=== PATIENT | male | born 1975 | race Caucasian/White ===

== ENCOUNTER 2017-02-13 17:41 | Emergency (ER) | payer BC, MEDICAID, OTHER ==
[2017-02-13 17:41] VITALS: BMI 42.3
[2017-02-13 18:03] VITALS: TEMP 98.4
[2017-02-13] MEDS ORDERED: HYDROmorphone 1 mg/ml ISec IVP STA ×2 (18:06→19:07)
[2017-02-13] MEDS ORDERED: HYDROmorphone 1 mg/ml ISec ONE ×2 (18:09→19:02)
--- NOTE | 2017-02-13 18:14 | C.PDOC ---
History Of Present Illness <Grady Holm - Last Filed: 02/13/17 20:55> <Tunde Ferguson DO - Last Filed: 02/14/17 07:22> 42 year old patient presents to the ED complaining of inability to urinate for the past 3 hours. Patient has an extensive urology history which includes urethral stricture, kidney stones, and urethral scarring. Patient states he is in severe pain. He denies any other complaints. (Phyllis FERNANDEZTunde) <Grady Holm - Last Filed: 02/13/17 20:55> History Per: Patient History/Exam Limitations: no limitations Onset/Duration Of Symptoms: Hrs (3 hours prior to arrival) Current Symptoms Are (Timing): Still Present Severity: Severe Pain Scale Rating Of: 10 Quality Of Discomfort: Pressure, "Pain" Associated Symptoms: Urinary Symptoms Alleviating Factors: None Recent travel outside of the [place]: No <Phyllis Tunde FERNANDEZ - Last Filed: 02/14/17 07:22> Time Seen by Provider: 02/13/17 17:57 Chief Complaint (Nursing): Male Genitourinary Past Medical History Reviewed: Historical Data, Nursing Documentation, Vital Signs Family History: States: Unknown Family Hx - Social History Hx Tobacco Use: No Hx Alcohol Use: Yes Hx Substance Use: No - Immunization History Hx Tetanus Toxoid Vaccination: No Hx Influenza Vaccination: No Hx Pneumococcal Vaccination: No <Tunde Ferguson DO - Last Filed: 02/14/17 07:22> Vital Signs: Last Vital Signs Temp 98.4 F 02/13/17 18:06 Pulse 103 H 02/13/17 20:35 Resp 18 02/13/17 20:35 BP 129/75 02/13/17 20:35 Pulse Ox 95 02/13/17 20:35 Review Of Systems Except As Marked, All Systems Reviewed And Found Negative. Constitutional: Negative for: Fever Respiratory: Negative for: Shortness of Breath Genitourinary: Positive for: Other (urinary retention) <Renettamo Tunde - Last Filed: 02/14/17 07:22> Physical Exam - Physical Exam Appears: Non-toxic, Other (severe distress) Skin: Warm, Dry Head: Atraumatic, Normacephalic Neck: Normal ROM, Supple Chest: Symmetrical Cardiovascular: Rhythm Regular Respiratory: Normal Breath Sounds, No Rales, No Rhonchi, No Wheezing Gastrointestinal/Abdominal: Soft, Tenderness (to palpation of suprapubic region) , No Guarding, No Rebound Back: Normal Inspection Male Genital: No Testicular Tenderness, No Testicular Swelling, No Inguinal Tenderness, No Inguinal Swelling, No Scrotal Swelling, No Circumcised, Other ( glans of penis has scarring with distal urethral stricture) Extremity: Normal ROM Neurological/Psych: Oriented x3 Gait: Steady <Tunde Ferguson DO - Last Filed: 02/14/17 07:22> ED Course And Treatment - Laboratory Results Result Diagrams: 02/13/17 18:09 02/13/17 18:09 Pulse Ox Interpretation: Normal - CT Scan/US CT Abd/Pel Other Rad Studies (CT/US): Interpreted By Me, Read By Radiologist CT/US Interpretation: EXAM: CT Abdomen and Pelvis With Intravenous Contrast. CLINICAL HISTORY: 42 years old, male; Pain and signs and symptoms; Other: Urinary retention; Abdominal pain;. Generalized; Additional info: Urinary retention, abd pain. TECHNIQUE: Axial computed tomography images of the abdomen and pelvis with intravenous contrast. This CT. exam was performed using one or more of the following dose reduction techniques: automated. exposure control, adjustment of the mA and/or kV according to patient size, and/ or use of iterative. reconstruction technique. Coronal and sagittal reformatted images were created and reviewed. CONTRAST: 100 mL of omnipaque 300 administered intravenously. EXAM DATE/TIME: Exam ordered 02/13/2017 7:03 PM. COMPARISON: No relevant prior studies available. FINDINGS: Lower thorax : Hypoventilatory changes are noted in the dependent portion of both lungs. ABDOMEN: Liver: Unremarkable. No mass. Gallbladder and bile ducts: Unremarkable. No calcified stones. No ductal dilation. Pancreas: Unremarkable. No mass. No ductal dilation. Spleen: Unremarkable. No splenomegaly. Adrenals: Unremarkable. No mass. Kidneys and ureters: Unremarkable. No solid mass. No hydronephrosis. Stomach and bowel: Unremarkable. No obstruction. No mucosal thickening. Appendix: No findings to suggest acute appendicitis. PELVIS: Bladder: There is a Burk catheter present within the bladder. There is an air- fluid level seen within. the bladder. The bladder is decompressed. Reproductive: The prostate measures 4.3 x 4.3 x 4.6 cm. Mild inflammatory changes are noted. within the fat surrounding the seminal vesicles. ABDOMEN and PELVIS: Intraperitoneal space: Unremarkable. No free air. No significant fluid collection. Bones/joints: No acute fracture. No dislocation. Soft tissues: Unremarkable. Vasculature: Unremarkable. No abdominal aortic aneurysm. Lymph nodes: Unremarkable. No enlarged lymph nodes. IMPRESSION: 1. Inflammatory changes noted around the seminal vesicles. This may be related to. infection/inflammation. Infection of the seminal vesicles is often associated with prostatitis. Clinical. correlation suggested. Reevaluation Time: 20:56 Reassessment Condition: Improved <Grady Holm - Last Filed: 02/13/17 20:55> - Laboratory Results Result Diagrams: 02/13/17 18:09 02/13/17 18:09 O2 Sat by Pulse Oximetry: 100 (room air) Pulse Ox Interpretation: Normal Progress Note: Plan: cart Stat, Complete metabolic panel, CBC, Dilaudid. Dr. Hinkle, Urologist communications superintendent, was called for a consult STAT due to difficulty passing burk catheter. Passed 4-kazakh catheter with minimal urinary release. Urine culture and urinalysis ordered. <Tunde Ferguson DO - Last Filed: 02/14/17 07:22> Disposition Counseled Patient/Family Regarding: Studies Performed, Diagnosis, Need For Followup, Rx Given - Disposition Disposition Time: 19:00 <Grady Holm - Last Filed: 02/13/17 20:55> <Tunde Ferguson DO - Last Filed: 02/14/17 07:22> - Disposition Referrals: Jesus Hinkle Jr., MD [Staff Provider] - Disposition: HOME/ ROUTINE Condition: IMPROVED Prescriptions: Sulfamethoxazole/Trimethoprim [Bactrim DS 800 mg-160 mg] 1 tab PO BID #20 tab Instructions: Urinary Retention in Men (ED), Burk Catheter Placement and Care (ED), Urinary Leg Bag (GEN) - Clinical Impression Clinical Impression: Acute urinary retention <Grady Holm - Last Filed: 02/13/17 20:55> - Scribe Statement The provider has reviewed the documentation as recorded by the Scribe <Tunde Ferguson DO - Last Filed: 02/14/17 07:22> - Scribe Statement Clara Blanchard (Tunde Ferguson DO) Provider Attestation: All medical record entries made by the Scribe were at my direction and personally dictated by me. I have reviewed the chart and agree that the record accurately reflects my personal performance of the history, physical exam, medical decision making, and the department course for this patient. I have also personally directed, reviewed, and agree with the discharge instructions and disposition. (Phyllis FERNANDEZ,Tunde)
[2017-02-13 18:20] LABS: BASO # 0.2 K/uL (0.0-0.2); BASO % 0.7 % (0.0-2.0); EOS % 0.1 % (0.0-4.0); HEMATOCRIT 46.6 % (35.0-51.0); LYMPH # 2.5 K/uL (1.0-4.3); LYMPH % 11.3 % (20.0-40.0); MEAN CORPUSCULAR HEMOGLOBIN 28.3 pg (27.0-31.0); MEAN CORPUSCULAR HGB CONC 32.9 g/dL (33.0-37.0); MEAN PLATELET VOLUME 8.1 fL (7.2-11.7); MONO % 8.9 % (0.0-10.0); RED CELL DISTRIBUTION WIDTH 13.4 % (11.5-14.5)
[2017-02-13 18:22] LABS: WHITE BLOOD COUNT 22.3 K/uL (4.8-10.8)
[2017-02-13 18:23] LABS: CHLORIDE 99 mmol/L (98-107); SODIUM 136 mmol/L (132-148)
[2017-02-13 18:25] LABS: BILIRUBIN,TOTAL 1.5 mg/dL (0.2-1.3); GFR AFRICAN-AMERICAN > 60
[2017-02-13 18:26] LABS: ALB/GLOB RATIO 1.3 (1.0-2.1); ALKALINE PHOSPHATASE 88 U/L (38-126); ALT/SGPT 14 U/L (21-72); AST/SGOT 19 U/L (17-59); BLOOD UREA NITROGEN 10 mg/dL (9-20); CARBON DIOXIDE 21 mmol/L (22-30); GLUCOSE,RANDOM 118 mg/dL (75-110)
[2017-02-13 18:27] LABS: CALCIUM 9.1 mg/dl (8.6-10.4)
[2017-02-13] MEDS ORDERED: Iohexol 300 100 ML IJ ONE (19:31)
[2017-02-13 20:11] LABS: RBC URINE 22 /hpf (0-3); URINE BACTERIA MANY (<OCC); URINE BILIRUBIN NEGATIVE (NEGATIVE); URINE BLOOD 1+ (NEGATIVE); URINE COLOR Yellow (YELLOW); URINE GLUCOSE (UA) NORMAL (Normal); URINE KETONE TRACE mg/dL (NEGATIVE); URINE LEUKOCYTE ESTERASE 3+ Leu/uL (Negative); URINE PROTEIN NEGATIVE (NEGATIVE); URINE UROBILINOGEN NORMAL mg/dL (0.2-1.0); WBC URINE 226 /hpf (0-5)
[2017-02-13] MEDS ORDERED: cefTRIAXone IV 1 gm in Dextros 50 ML IVPB ONE ×2 (20:21→20:33)
[2017-02-13 20:36] VITALS: BP 129/75; PULSE 103; RESP 18
--- NOTE | 2017-02-14 01:47 | CT ---
PROCEDURE: CT Abdomen and Pelvis with contrast HISTORY: urinary retention, abd pain COMPARISON: None. TECHNIQUE: Contrast dose: 90 cc Radiation dose: Total exam DLP = 13 35 mGy-cm. This CT exam was performed using one or more of the following dose reduction techniques: Automated exposure control, adjustment of the mA and/or kV according to patient size, and/or use of iterative reconstruction technique. FINDINGS: LOWER THORAX: Mild dependent atelectasis is seen at the lung bases. Visualized esophagus shows small hiatal hernia. No pericardial effusion is seen. LIVER: Unremarkable. No gross lesion or ductal dilatation. GALLBLADDER AND BILE DUCTS: Unremarkable. PANCREAS: Unremarkable. No gross lesion or ductal dilatation. SPLEEN: Unremarkable. ADRENALS: Unremarkable. No mass. KIDNEYS AND URETERS: Unremarkable. No hydronephrosis. No solid mass. VASCULATURE: Unremarkable. No aortic aneurysm. BOWEL: Unremarkable. No obstruction. No gross mural thickening. APPENDIX: Normal appendix. PERITONEUM: Unremarkable. No free fluid. No free air. LYMPH NODES: Unremarkable. No enlarged lymph nodes. BLADDER: Biggs catheter is seen in the bladder. REPRODUCTIVE: There is nonspecific mild enlargement and inflammatory change adjacent to the seminal vesicles. Significantly enlarged. BONES: Degenerative changes are seen in the spine. No lytic lesion is seen in the bony structures. OTHER FINDINGS: None. IMPRESSION: Mild nonspecific inflammatory changes and enlargement of the seminal vesicles. This could be related to prostatitis in the correct clinical setting. Biggs catheter in the bladder. This agrees with preliminary report.
[2017-02-14 07:22] VITALS: O2SAT 100
--- NOTE | 2017-02-19 17:42 | CON ---
DATE: 02/13/2017 REASON FOR CONSULTATION: Inability to pass Biggs catheter. HISTORY OF PRESENT ILLNESS: The patient presented with difficulty in urination for several days. The Emergency Room staff attempted to pass a catheter, but was unsuccessful due to a distal urethral str icture. The patient gives a history of having a stricture treated in the past. He is not sure which hospital or when this was done, some more than 10 years ago. Further history is noncontributory. PHYSICAL EXAMINATION: The patient's bladder is palpably distended. The tip of the penis, the meatus is very small. PLAN: The decision was made to dilate the urethra here in the Emergency Room. This was done after t he patient gave a verbal consent. The patient was then dilated with filiforms and followers and we s ucceeded in placing a 12 Tamazight Biggs catheter. We suggest that this catheter be left in place and th e patient should be followed up in our office in approximately 1 week. We will schedule him for form al dilatation under anesthesia. Jesus Hinkle MD cc: [id number] TT: 02/19/2017 17:41:24 Confirmation # [id number] Dictation # [id number] ln
== END 2017-02-13 21:26 | disposition home or self-care (01) ==
LOC: C.ER 17:41
DX: R33.9 Retention of urine, unspecified (principal)
CPT/HCPCS: 51702; 74177; 80053; 81001; 82948; 85025; 87086; 87181; 96374; 96375; 96376; 99285; J0696; J1170; Q9967